=== PATIENT | female | born 1995 | race Caucasian/White ===

== ENCOUNTER 2017-07-30 16:21 | Emergency (ER) | payer OTHER ==
--- NOTE | 2017-07-30 16:39 | ED Physician Documentation ---
General Adult - HISTORIAN Historian: patient (She reports that a week ago she had a "cold" - reporting fatigue and sore throat, headache and mild cough (she states the symptoms were well controlled with OTC meds) She reports that two days ago she started with period cramps and she states that she was aching and body chills and everything hurt She reports a mild headache but feels this is from her panic attack SHe did have a fever last night 99.9 and she took MIdol and she felt fine this am ) , spouse - HPI Stated Complaint: fever Chief Complaint: Fever Onset: hours (2) Timing: worse Severity: moderate Modifying Factors: none Last known Well Date: 07/30/17 Last Known Well Time: 14:30 Last known Well Code/Unknown Code: Known - ROS CONST: fever, weakness, chills EYES/ENT: none CVS/RESP: none. denies: chest pain, shortness of breath, cough GI/: problems urinating. denies: vomiting, nausea, diarrhea MS/SKIN/LYMPH: none NEURO/PSYCH: dizziness, tingling (she felt it was b/c she was having an anxiety attack ). denies: headache - PAST HX Past History: none (depression ), other Other History: none Surgeries/Procedures: other (surgery on her thyroid (she was told it was benign ) 2016 - She had a spinal issue and surgery in 2009 ) Immunizations: referred to PCP - SOCIAL HX Smoking History: non-smoker Alcohol Use: none Drug Use: none - FAMILY HX Family History: Yes (grandma had lymphoma, uncle lymphoma, ) - REVIEWED ASSESSMENTS Nursing Assessment Reviewed: Yes Vitals Reviewed: Yes <Stephanie Winston - Last Filed: 07/30/17 18:29> - VITAL SIGNS Vital Signs: Vital Signs Temp Pulse Resp BP Pulse Ox 104.3 F H 112 H 28 H 106/46 95 07/30/17 16:22 07/30/17 16:22 07/30/17 16:22 07/30/17 16:22 07/30/17 16:22 <Jorge Awad - Last Filed: 07/31/17 09:41> - PAST HX Allergies/Adverse Reactions: Allergies Allergy/AdvReac Type Severity Reaction Status Date / Time No Known Allergies Allergy Verified 07/30/17 16:57 Home Medications: Ambulatory Orders Medication Instructions Recorded Citalopram Hydrobromide 10 mg PO DAILY 07/30/17 [Citalopram HBr] Norgestimate-Ethinyl Estradiol 1 tab PO DAILY 07/30/17 [Sprintec 28 Day Tablet] Sulfamethoxazole/Trimethoprim 1 each PO BID #14 tablet 07/30/17 [Bactrim DS] Progress - Progress Progress: 1744 temp 99.7 <Stephanie Winston - Last Filed: 07/30/17 18:29> - Progress Progress: I have examined patient and agree with assessment and plan as outlined <Jorge Awad - Last Filed: 07/31/17 09:41> ED Results Lab/Radiology - Lab Results Lab Results: Lab Results 07/30/17 07/30/17 07/30/17 17:05 17:05 17:05 WBC 3.80 K/ul L K/ul (4.00-12.00) RBC 4.29 M/ul M/ul (3.90-5.20) Hgb 12.4 g/dL g/dL (12.0-16.0) Hct 36.4 % % (34.5-46.5) MCV 84.7 fl fl (80.0-100.0) MCH 28.8 pg pg (28.0-34.0) MCHC 34.0 g/dL g/dL (30.0-36.0) RDW 13.7 % % (11.3-14.3) Plt Count 201 K/mm3 K/mm3 (130-400) Neut % (Auto) 77.0 % % (39.0-79.0) Lymph % (Auto) 20.1 % % (16.0-50.0) [place] % (Auto) 0.3 % % (0.0-11.0) Eos % (Auto) 1.8 % % (0.0-6.8) Baso % (Auto) 0.4 (0.0-1.5) Neut # (Auto) 2.9 # k/uL # k/uL (1.4-7.7) Lymph # (Auto) 0.8 # k/uL # k/uL (0.6-4.0) [place] # (Auto) 0.0 # k/uL # k/uL (0.0-0.9) Eos # (Auto) 0.1 # k/uL # k/uL (0.0-0.6) Baso # (Auto) 0.0 # k/uL # k/uL (0.0-0.5) Reactive Lymphs % 0.4 % % (0.0-5.0) Reactive Lymphs # 0.0 # k/uL # k/uL (0.0-0.8) Sodium 140 mmol/L mmol/L (136-145) Potassium 3.7 mmol/L mmol/L (3.5-5.0) Chloride 104 mmol/L mmol/L (98-110) Carbon Dioxide 24 mmol/L mmol/L (20-32) BUN 9 mg/dL L mg/dL (10-26) Creatinine 0.6 mg/dL mg/dL (0.4-1.5) Estimated Creat Clear 193 Est GFR ( Amer) > 60 (60 - ) Est GFR (Non-Af Amer) > 60 (60 - ) Glucose 100 mg/dL H mg/dL (70-99) Calcium 9.1 mg/dL mg/dL (8.5-10.5) Total Bilirubin 0.6 mg/dL mg/dL (0.2-1.2) AST 15 U/L U/L (0-41) ALT 15 U/L U/L (0-45) Alkaline Phosphatase 58 U/L U/L (46-116) Total Protein 7.1 g/dL g/dL (6.0-8.5) Albumin 4.8 g/dL g/dL (3.0-5.5) Urine Color Yellow (YELLOW) Urine Appearance Slightly cloudy H (CLEAR) Urine pH 6.0 (5.0 - 8.0) Ur Specific [place] 1.025 (1.010-1.030) Urine Protein 2+ mg/dL H mg/dL (NEGATIVE) Urine Ketones Trace mg/dL H mg/dL (NEGATIVE) Urine Occult Blood 3+ H (NEGATIVE) Urine Nitrite Negative (NEGATIVE) Urine Bilirubin Negative (NEGATIVE) Urine Urobilinogen 0.2 Eu Eu (0.2-1.0) Ur Leukocyte Esterase 1+ H (NEGATIVE) Urine RBC 0-2 (0-2 HPF) Urine WBC 25-50 H (0-5 HPF) Urine WBC Clumps Present H (NEGATIVE) Ur Squamous Epith Cells Few (NEG-FEW) Amorphous Sediment Few H (NEGATIVE) Urine Bacteria Moderate H (NEGATIVE) Urine Glucose Negative mg/dL mg/dL (NEGATIVE) - Orders Orders: ED Orders Category Date Time Status IV Started NOW Care 07/30/17 16:40 Active BLOOD CULTURE Stat Lab 07/30/17 16:40 Received CBC/PLATELET/DIFF Routine Lab 07/30/17 17:05 Completed CMP [CMP] Routine Lab 07/30/17 17:05 Completed UA W/MICRO IF INDICATED Routine Lab 07/30/17 17:05 Completed URINE CULTURE Routine Lab 07/30/17 17:05 Received 0.9 % Sodium Chloride [Normal Saline] 1,000 ml Med 07/30/17 17:18 Discontinued IV .STK-MED 0.9 % Sodium Chloride [Normal Saline] 1,000 ml Med 07/30/17 17:18 Discontinued IV .STK-MED 0.9 % Sodium Chloride [Normal Saline] 1,000 ml Med 07/30/17 17:05 Discontinued IV NOW 0.9 % Sodium Chloride [Normal Saline] 500 ml Med 07/30/17 16:41 Discontinued IV NOW Ciprofloxacin/D5w [Cipro] 200 ml Med 07/30/17 18:24 Discontinued IV .STK-MED Ciprofloxacin/D5w [Cipro] 400 mg Med 07/30/17 18:16 Active Premix Bag [Premix Fluid] 1 bag IV NOW Ibuprofen [Advil] Med 07/30/17 16:42 Discontinued 400 mg PO NOW ONE EKG WITH COMPARISON Stat Ther 07/30/17 Ordered <Jorge Awad - Last Filed: 07/31/17 09:41> General Adult Physical Exam - PHYSICAL EXAM GENERAL APPEARANCE: mild distress EENT: eye inspection normal, ENT inspection normal, pharynx normal NECK: normal inspection, other (scar on neck ) RESPIRATORY: no resp distress, chest non-tender, breath sounds normal CVS: heart sounds normal, tachycardia ABDOMEN: soft, no organomegaly, normal bowel sounds, no distension, non-tender. No: rebound, distended, guarding BACK: normal inspection SKIN: pallor EXTREMITIES: non-tender NEURO: oriented X3, other (she is anxious with speech ) <Stephanie Winston - Last Filed: 07/30/17 18:29> Discharge Decision to Admit: NO Date of Decison to Admit: 07/30/17 Decision Time: 18:18 <Stephanie Winston - Last Filed: 07/30/17 18:29> <Jorge Awad - Last Filed: 07/31/17 09:41> Clincal Impression: Urinary tract bacterial infections Prescriptions: Sulfamethoxazole/Trimethoprim [Bactrim DS] 1 each PO BID #14 tablet Referrals: Primary Doctor,No [Primary Care Provider] - 2 Days Additional Instructions: Drink a lot of fluids, take Bactrim as directed. If symptoms get worse to follow -up with physician. Take Tylenol as needed for fever. Condition: Stable Disposition: 01 HOME, SELF-CARE
[2017-07-30] MEDS: IBUPROFEN 400 MG TABLET PO ONE (17:00)
[2017-07-30] MEDS: 0.9 % SODIUM CHLORIDE 500 ML IV ONE (17:00)
[2017-07-30 17:10] LABS: BASOPHILS % 0.4 (0.0-1.5); EOSINOPHILS % 1.8 % (0.0-6.8); MEAN CORPUSCULAR HEMOGLOBIN 28.8 pg (28.0-34.0); MEAN CORPUSCULAR VOLUME 84.7 fl (80.0-100.0); MONOCYTES % 0.3 % (0.0-11.0); NEUTROPHILS # 2.9 # k/uL (1.4-7.7)
[2017-07-30] MEDS ORDERED: 0.9 % SODIUM CHLORIDE 1,000 ML IV ONE ×2 (17:18)
[2017-07-30 17:20] LABS: eGFR (African) > 60; eGFR (Non-African) > 60
[2017-07-30] MEDS: 0.9 % SODIUM CHLORIDE 1,000 ML IV ONE (17:25)
[2017-07-30 18:04] LABS: APPEARANCE,URINE SLIGHTLY CLOUDY (CLEAR); COLOR,URINE YELLOW (YELLOW); OCCULT BLOOD,URINE 3+ (NEGATIVE); UROBILINOGEN URINE 0.2 Eu (0.2-1.0)
[2017-07-30 18:08] LABS: AMORPHOUS SEDIMENT,UR FEW (NEGATIVE)
[2017-07-30] MEDS ORDERED: CIPROFLOXACIN/D5W 200 ML IV ONE (18:24)
[2017-07-30] MEDS: CIPROFLOXACIN/D5W 400 MG in PREMIX BAG 1 BAG IV ONE (18:30)
[2017-07-30 19:58] VITALS: BP 96/48
== END 2017-07-30 19:30 | disposition home or self-care (01) ==
LOC: ED 16:21
DX: N39.0 Urinary tract infection, site not specified (principal)
CPT/HCPCS: 80053; 81002; 85025; 87040; 87086; 93005; J0744; J7030; J7060; 87186; 96361; 96365; 99283; S1016